=== PATIENT | male | born 1985 | race African-American/Black ===

== ENCOUNTER 2018-10-31 17:06 | Inpatient (IN) | payer MEDICAID, OTHER ==
[~2018-10-31] VITALS: Ht 167.6 cm; Wt 86.2 kg
[2018-11-01 11:04] LABS: BASOPHILS % 1.1 % (0.0-2.0); EOSINOPHILS % 1.3 % (0.0-5.0); HEMATOCRIT. 47.7 % (42.0-52.0); HEMOGLOBIN. 16.3 g/dL (14.0-18.0); LYMPHOCYTES % 28.6 % (20.0-50.0); MEAN CORPUSCULAR HEMOGLOBIN 29.2 pg (28.0-32.0); MEAN CORPUSCULAR VOLUME 85.1 fL (80.0-94.0); MEAN PLATELET VOLUME 8.4 fl (7.4-10.4); MONOCYTES % 6.4 % (2.0-8.0); NEUTROPHILS % 62.6 % (40.0-76.0); PLATELET 295 x1000/uL (130-400); RED CELL DISTRIBUTION WIDTH 14.1 % (11.6-14.6)
[2018-11-01 11:10] LABS: CHLORIDE 97 mEq/L (98-107)
[2018-11-01] MEDS ORDERED: POTASSIUM CHLORIDE 20MEQ TABLET SR PO ONE (12:15)
[2018-11-01] MEDS ORDERED: KCL 20MEQ/100ML PREMIX 100 ML IV ONE (12:15)
[2018-11-01] MEDS ORDERED: DOCUSATE SODIUM 100MG CAPSULE PO PRN (14:30)
[2018-11-01] MEDS ORDERED: IPRATROPIUM/ALBUTEROL 0.5-3(2.5)MG/3ML NEB INH PRN (14:30)
[2018-11-01] MEDS ORDERED: MAGNESIUM/ALUMINUM HYDROXIDE/SIMETHICONE 30ML UDC PO PRN (14:30)
[2018-11-01] MEDS ORDERED: ACETAMINOPHEN 325MG TABLET PO PRN (14:30)
[2018-11-01 14:40] VITALS: BP 166/111
[2018-11-01 15:00] VITALS: BP 166/111
[2018-11-01] MEDS ORDERED: NIFE60TA64 MT (15:04)
[2018-11-01] MEDS: CLONIDINE 0.1MG TABLET PO PRN ×2 (16:36→21:00)
[2018-11-01 17:01] VITALS: BP 155/52
[2018-11-01 20:00] VITALS: BP 153/94
[2018-11-01 20:30] LABS: *AMPHETAMINES SCREEN URINE NEGATIVE (NEGATIVE); *BARBITURATES SCREEN URINE NEGATIVE (NEGATIVE); *BENZODIAZEPINES SCREEN URINE NEGATIVE (NEGATIVE); *COCAINE SCREEN URINE NEGATIVE (NEGATIVE); METHADONE URINE SCREEN NEGATIVE (NEGATIVE); OPIATES URINE SCREEN NEGATIVE (NEGATIVE)
[2018-11-01 20:31] LABS: CANNABINOID URINE SCREEN PRESUMTIVE POSITIVE (NEGATIVE); PHENCYCLIDINE URINE SCREEN NEGATIVE (NEGATIVE)
[2018-11-01] MEDS: SODIUM CHLORIDE 0.9% 1,000 ML IV SCH (21:16)
[2018-11-01 22:00] VITALS: BP 122/79
[2018-11-02] VITALS: BP 127/90
[2018-11-02] MEDS: SODIUM CHLORIDE 0.9% 1,000 ML IV SCH ×2 (03:15→15:45)
[2018-11-02 08:00] VITALS: BP 153/102
[2018-11-02] MEDS: CLONIDINE 0.1MG TABLET PO PRN ×3 (08:31→21:07)
[2018-11-02 09:01] LABS: EOSINOPHILS % 2.5 % (0.0-5.0); HEMATOCRIT. 47.1 % (42.0-52.0); HEMOGLOBIN. 15.8 g/dL (14.0-18.0); LYMPHOCYTES % 31.6 % (20.0-50.0); MEAN CORPUSCULAR HEMOGLOBIN 28.6 pg (28.0-32.0); MEAN CORPUSCULAR VOLUME 85.6 fL (80.0-94.0); MEAN PLATELET VOLUME 8.4 fl (7.4-10.4); MONOCYTES % 6.6 % (2.0-8.0); NEUTROPHILS % 58.3 % (40.0-76.0); PLATELET 276 x1000/uL (130-400); RED BLOOD CELL COUNT 5.51 mill/uL (4.7-6.1); RED CELL DISTRIBUTION WIDTH 14.4 % (11.6-14.6)
[2018-11-02 09:21] LABS: CHLORIDE 101 mEq/L (98-107)
[2018-11-02 09:28] LABS: LDL CHOLESTEROL 99 mg/dL (5-100)
[2018-11-02 09:30] LABS: HDL CHOLESTEROL 42 mg/dL (40-59)
[2018-11-02 09:31] LABS: T4 FREE 1.03 ng/dL (0.76-1.46)
[2018-11-02 09:32] LABS: PHOSPHORUS 2.6 mg/dL (2.5-4.9)
[2018-11-02] MEDS ORDERED: POTASSIUM CHLORIDE 20MEQ TABLET SR PO SCH (11:30)
[2018-11-02 12:00] VITALS: BP 168/108
[2018-11-02] MEDS: LOSARTAN POTASSIUM 50 MG TABLET PO SCH (12:45)
[2018-11-02 15:14] VITALS: BP 170/106
[2018-11-02 16:00] VITALS: BP 153/101
[2018-11-02 20:00] VITALS: BP 173/106
[2018-11-02] MEDS: NIFEDIPINE XL 60MG TAB PO SCH (21:07)
[2018-11-03] VITALS: BP 186/93
[2018-11-03] MEDS: CLONIDINE 0.1MG TABLET PO PRN (01:50)
[2018-11-03 04:00] VITALS: BP 127/78
[2018-11-03] MEDS: SODIUM CHLORIDE 0.9% 1,000 ML IV SCH (04:07)
[2018-11-03 08:00] VITALS: BP 149/83
[2018-11-03 09:03] LABS: BASOPHILS % 0.8 % (0.0-2.0); HEMATOCRIT. 44.4 % (42.0-52.0); HEMOGLOBIN. 14.9 g/dL (14.0-18.0); LYMPHOCYTES % 27.8 % (20.0-50.0); MEAN CORPUSCULAR HEMOGLOBIN 28.6 pg (28.0-32.0); MEAN CORPUSCULAR VOLUME 85.1 fL (80.0-94.0); MEAN PLATELET VOLUME 8.6 fl (7.4-10.4); MONOCYTES % 5.2 % (2.0-8.0); NEUTROPHILS % 65.2 % (40.0-76.0); PLATELET 255 x1000/uL (130-400); RED BLOOD CELL COUNT 5.21 mill/uL (4.7-6.1); RED CELL DISTRIBUTION WIDTH 14.4 % (11.6-14.6)
[2018-11-03] MEDS: LOSARTAN POTASSIUM 50 MG TABLET PO SCH ×2 (09:03→21:15)
[2018-11-03] MEDS: NIFEDIPINE XL 60MG TAB PO SCH (09:03)
[2018-11-03 09:14] LABS: CHLORIDE 101 mEq/L (98-107)
[2018-11-03 12:00] VITALS: BP 148/90
[2018-11-03] MEDS ORDERED: POTASSIUM CHLORIDE 20MEQ TABLET SR PO SCH (13:00)
[2018-11-03] MEDS: HYDRALAZINE HCL 10MG TABLET PO SCH ×2 (13:39→21:15)
[2018-11-03 16:00] VITALS: BP 150/87
[2018-11-03] MEDS: DILTIAZEM HCL 60MG TABLET PO SCH (17:56)
[2018-11-03 20:00] VITALS: BP 137/88
[2018-11-04] VITALS: BP 155/91
[2018-11-04] MEDS: DILTIAZEM HCL 60MG TABLET PO SCH ×3 (00:03→12:39)
[2018-11-04 04:00] VITALS: BP 165/99
[2018-11-04] MEDS: HYDRALAZINE HCL 10MG TABLET PO SCH ×2 (05:05→14:00)
[2018-11-04] MEDS: LOSARTAN POTASSIUM 50 MG TABLET PO SCH (08:40)
[2018-11-04 12:00] VITALS: BP 150/93
[2018-11-04 15:34] VITALS: BP 150/93
[2018-11-04] MEDS: CLONIDINE 0.1MG TABLET PO PRN (16:09)
== END 2018-11-04 16:20 | disposition home or self-care (01) | DRG 201 ==
LOC: ER 17:06 → 7WST 11-01 12:05 → EDBEDREQ 11-01 12:11 → EDBEDREQTM 11-01 12:11 → ENRESERV 11-01 13:19 → 5WST 11-03 05:29
PROVIDERS: ADMIT Family Medicine Adult Medicine; ATTEND Family Medicine Adult Medicine
DX: I48.92 Unspecified atrial flutter (principal); E78.5 Hyperlipidemia, unspecified; I47.1 Supraventricular tachycardia; R07.89 Other chest pain; E87.6 Hypokalemia; I10 Essential (primary) hypertension; F12.90 Cannabis use, unspecified, uncomplicated; F17.290 Nicotine dependence, other tobacco product, uncomplicated; Z91.14 Patient's other noncompliance with medication regimen; Z79.899 Other long term (current) drug therapy
CPT/HCPCS: 36415; 71045; 80048; 80061; 80305; 83735; 83880; 84100; 84439; 84443; 84481; 84484; 93005; 93306; 93970; 99285; J3480; J7030